=== PATIENT | male | born 1970 | race Caucasian/White ===

== ENCOUNTER 2018-03-15 13:07 | Emergency (ER) | payer OTHER ==
[~2018-03-15] VITALS: Ht 185.4 cm; Wt 102.5 kg
[~2018-03-15 13:07] MED LIST: LAMISIL250 MG PO; NAPROSYN500 MG PO; NOHOMEMEDICATIONS
[2018-03-15 13:17] VITALS: BP 147/97
== END 2018-03-15 13:32 | disposition home or self-care (01) ==
LOC: M.ERS 13:07
DX: D17.1 Benign lipomatous neoplasm of skin and subcutaneous tissue of trunk (principal); F17.210 Nicotine dependence, cigarettes, uncomplicated